=== PATIENT | female | born 1950 | race Caucasian/White ===

== ENCOUNTER 2017-07-02 03:00 | Inpatient (IN) | payer MEDICARE, OTHER ==
[2017-07-02] VITALS (834 sets, daily range): BP systolic 111–162; BP diastolic 52–73; PULSE 69–80; TEMP 97.6–98.2; O2SAT 33–100
[~2017-07-02] VITALS: Ht 165.1 cm; Wt 78.5 kg
[2017-07-02 03:25] LABS: BASO % 0.4 % (0.0-2.0); EOS # 0.2 (0.0-0.7); GRAN # 5.4 (1.4-6.5); GRAN % 73.5 % (42.2-75.2); LYMPH # 1.3 (1.2-3.4); LYMPH % 17.5 % (20.0-51.0); MEAN CELL VOLUME 95 fl (80.0-100.0); MEAN CORPUSCULAR HGB CONC 31 g/dl (33.0-37.0); MEAN PLATELET VOLUME 10.8 fl (7.4-10.4); MONO # 0.5 (0.1-0.6); MONO % 6.3 % (1.7-9.3); PLATELET COUNT 232 K/mm3 (130-400); RED BLOOD COUNT 1.72 M/mm3 (4.20-5.60); REDCELL DISTRIBUTION WIDTH-CV 15.2 % (11.5-14.5)
[2017-07-02 03:27] LABS: MEAN CORPUSCULAR HEMOGLOBIN 29 pg (27.0-31.0)
[2017-07-02 03:28] LABS: HEMATOCRIT 16.4 % (42.0-52.0)
[2017-07-02 03:34] LABS: INR 1.6 (0.8-3.0); PROTHROMBIN TIME 18.5 SECONDS (9.7-12.8)
[2017-07-02 03:36] LABS: ALANINE AMINOTRANSFERASE 31 U/L (21-72); ALBUMIN 2.9 gm/dL (3.5-5.0); ALKALINE PHOSPHATASE 70 U/L (50-136); ANION GAP 8 mmol/L (7-16); AST,SGOT 25 U/L (15-37); BILIRUBIN,TOTAL 0.3 mg/dL (0.0-1.0); BLOOD UREA NITROGEN 51 mg/dL (9-20); CALCIUM 8.3 mg/dL (8.4-10.2); CARBON DIOXIDE 25 mmol/L (22-30); CHLORIDE 106 mmol/L (98-107); CREATININE, serum 1.36 mg/dL (0.66-1.25); GLUCOSE 126 mg/dL (74-106); LIPASE 259 U/L (23-300); POTASSIUM 4.2 mmol/L (3.4-5.0); SODIUM 139 mmol/L (137-145); TOTAL PROTEIN 5.3 gm/dL (6.4-8.2)
[2017-07-02 03:37] LABS: PARTIAL THROMBOPLASTIN TIME 29.1 SECONDS (26.0-37.0)
[2017-07-02 03:54] LABS: TROPONIN-I < 0.012 ng/mL (0.000-0.034)
[2017-07-02] MEDS ORDERED: ELIQUIS 5MG PO (05:17)
[2017-07-02] MEDS ORDERED: LIPITOR 40MG TA40 MG PO (05:18)
[2017-07-02] MEDS ORDERED: TAMBOCOR150 MG PO (05:19)
[2017-07-02] MEDS ORDERED: MOBIC15 MG PO (05:19)
[2017-07-02] MEDS ORDERED: LOPRESSOR 225 MG/TAB PO (05:20)
[2017-07-02] MEDS ORDERED: MULTI VITAMINS1 TAB PO (05:20)
[2017-07-02] MEDS ORDERED: ZOLOFT 100MG100 MG PO (05:21)
[2017-07-02] MEDS ORDERED: MAXALT10 MG PO (05:21)
[2017-07-02] MEDS ORDERED: ASPIRIN 81M81 MG/TA2 PO (05:22)
[2017-07-03] VITALS (745 sets, daily range): BP systolic 112–157; BP diastolic 53–88; PULSE 69–70; TEMP 97.7–98.9; O2SAT 30–100
[2017-07-03 05:48] LABS: BASO % 0.4 % (0.0-2.0); EOS # 0.2 (0.0-0.7); EOS % 3.1 % (0-4.0); GRAN # 3.5 (1.4-6.5); GRAN % 64.3 % (42.2-75.2); LYMPH # 1.3 (1.2-3.4); LYMPH % 23.2 % (20.0-51.0); MEAN CELL VOLUME 94 fl (80.0-100.0); MEAN CORPUSCULAR HGB CONC 31 g/dl (33.0-37.0); MEAN PLATELET VOLUME 10.8 fl (7.4-10.4); MONO # 0.5 (0.1-0.6); MONO % 8.6 % (1.7-9.3); PLATELET COUNT 151 K/mm3 (130-400); RED BLOOD COUNT 2.07 M/mm3 (4.10-5.30); REDCELL DISTRIBUTION WIDTH-CV 17.1 % (11.5-14.5)
[2017-07-03 05:50] LABS: HEMATOCRIT 19.5 % (37.0-47.0); HEMOGLOBIN 6.1 g/dl (12.5-16.0); MEAN CORPUSCULAR HEMOGLOBIN 29 pg (27.0-31.0)
[2017-07-03 05:58] LABS: CREATININE, serum 1.05 mg/dL (0.52-1.25); POTASSIUM 3.9 mmol/L (3.4-5.0)
[2017-07-03 16:58] LABS: HEMATOCRIT 24.6 % (37.0-47.0)
[2017-07-04 00:15] VITALS: BP 122/61; PULSE 70; TEMP 98.3
[2017-07-04 04:25] VITALS: BP 132/68; PULSE 69; TEMP 97.8
[2017-07-04 07:32] LABS: HEMATOCRIT 25.1 % (37.0-47.0); HEMOGLOBIN 8.1 g/dl (12.5-16.0)
[2017-07-04 07:40] VITALS: BP 126/51; PULSE 72; TEMP 98.2
== END 2017-07-04 14:56 | disposition home or self-care (01) | DRG 378 ==
LOC: COL.ER 03:00 → EDSEX 03:05 → COL.ER 03:05 → MEDICAL 04:18 → ICU 04:18 → MEDICAL 07-03 15:00 → ICU 07-03 18:05 → MEDICAL 07-03 18:05
PROVIDERS: Emergency Medicine; Internal Medicine; Internal Medicine Gastroenterology; Nurse Practitioner Family
PROC: 0DJ08ZZ Inspection of Upper Intestinal Tract, Via Natural or Artificial Opening Endoscopic (ICD-10-PCS; 2017-07-02)
PROC: 0DBN8ZX Excision of Sigmoid Colon, Via Natural or Artificial Opening Endoscopic, Diagnostic (ICD-10-PCS; principal; 2017-07-03 07:30)
DX: K92.1 Melena (principal); D62 Acute posthemorrhagic anemia; D12.5 Benign neoplasm of sigmoid colon; I48.91 Unspecified atrial fibrillation; Z79.01 Long term (current) use of anticoagulants; Z95.0 Presence of cardiac pacemaker; Z87.891 Personal history of nicotine dependence; Z98.84 Bariatric surgery status; K57.90 Diverticulosis of intestine, part unspecified, without perforation or abscess without bleeding
CPT/HCPCS: 99223-AI; 99233-AI; 99238; C1751; C1894; C9113; C9132; J1644; J2250; J2405; J2704; J2765; J7030; J7040; P9016